=== PATIENT | male | born 2000 | race Caucasian/White ===

== ENCOUNTER 2024-01-10 18:49 | Emergency (ER) | payer OTHER ==
[~2024-01-10] VITALS: Ht 190.5 cm; Wt 122.5 kg
[2024-01-10] MEDS ORDERED: ASPI81TA31 PO (19:02)
[2024-01-10] MEDS ORDERED: HYDROCODONE/APAP 10-325 MG TABLET ONE (19:22)
[2024-01-10] MEDS: HYDROCODONE/APAP 10-325 MG TABLET PO ONE (19:33)
[2024-01-10] MEDS: NEOMY/BACITRA/POLYMYXIN B OINT UD PACKET TP ONE (19:33)
[2024-01-10] MEDS ORDERED: NAPR-1009 PO (20:21)
[2024-01-10 20:35] VITALS: BP 98/63; O2SAT 98
== END 2024-01-10 20:35 | disposition home or self-care (01) ==
LOC: ER 18:52
DX: S06.0XAA Concussion with loss of consciousness status unknown, initial encounter (principal); S93.491A Sprain of other ligament of right ankle, initial encounter; S93.691A Other sprain of right foot, initial encounter; S80.211A Abrasion, right knee, initial encounter; R03.0 Elevated blood-pressure reading, without diagnosis of hypertension; Z79.82 Long term (current) use of aspirin; Z60.2 Problems related to living alone; X58.XXXA Exposure to other specified factors, initial encounter; Y93.55 Activity, bike riding; Y92.89 Other specified places as the place of occurrence of the external cause; Y99.8 Other external cause status
CPT/HCPCS: 73600; 73630; A4606; A4663